=== PATIENT | male | born 1990 | race Caucasian/White ===

== ENCOUNTER 2018-11-17 14:08 | Inpatient (IN) | payer MEDICAID, SELFPAY ==
[2018-11-17 14:23] VITALS: BMI 26.4
[2018-11-17 14:32] VITALS: BP 135/89; PULSE 101; RESP 18; TEMP 36.9; O2SAT 100
[2018-11-17 14:34] VITALS: BP 135/89; PULSE 101; RESP 18; TEMP 36.9
[2018-11-17] MEDS: Buprenorphine HCl 2 MG TAB.SUBL SL ×2 (15:07→23:12)
[2018-11-17] MEDS: Methocarbamol 750 MG Tablet PO ×2 (15:07→21:39)
[2018-11-17] MEDS: chlordiazePOXIDE 25 MG Capsule PO ×2 (15:07→21:39)
[2018-11-17] MEDS: cloNIDine HCl 0.1 MG Tablet PO ×2 (15:07→17:59)
[2018-11-17] MEDS: Dicyclomine 10 MG Capsule 20 MG PO ×2 (15:07→21:38)
--- NOTE | 2018-11-17 15:19 | NEWVISION ---
Patient will continue with inpatient rehabilitation at [facility] in [place], [place] immediately post discharge. Patient will need transportation through his insurance company.
[2018-11-17] MEDS: 0.9% NaCl Peripheral Flush Adult/Peds IV ×2 (17:00→17:59)
[2018-11-17] MEDS: Pramipexole Di-HCl 0.25 MG Tablet PO (17:00)
[2018-11-17] MEDS: hydrOXYzine PAM 25 MG Capsule 50 MG PO ×2 (17:00→23:12)
--- NOTE | 2018-11-17 17:15 | PCM.HP.STD ---
Problem List (1) Heroin abuse Status: Acute (2) Alcohol abuse Status: Acute (3) Benzodiazepine abuse Status: Acute (4) Hypertension Status: Chronic History of Present Illness Date of Admission: 11/17/18 Chief Complaint: Heroin, alcohol, benzo withdrawal The patient is a 28 year old M with a history of hypertension presents to the hospital wanting to undergo withdrawal with [facility]. He states that he has been using for the last several years heroin about half to 1 g, as well as alcohol of 6-10 drinks a day generally either beer or vodka or some combination of those 2, as well as snorting Xanax and occasional Valium use. He says that his last use of everything was yesterday. He has tried to go through rehab before and has relapsed several times but he is hoping this is his last time through rehab. Of note he also had cellulitis of his left lower extremity a little over a week ago when he is completed antibiotics and is doing well from that standpoint. Past Medical History Past Medical History (Chronic Problems): Chronic Problems Hypertension (Chronic) Allergies vancomycin Allergy (Verified 11/17/18 14:27) Other red ezekiel syndrome Home Medications: Ambulatory Orders Medication Instructions Recorded Metoprolol Succinate [Toprol Xl] 50 mg PO DAILY 11/17/18 Surgical History: - - Shoulder arthroscopy, ankle surgery Smoking Status: Current every day smoker Tobacco Use: Cigarettes Alcohol: Heavy Drugs: Heroin, Marijuana, - - Benzos - *Family History Maternal History Items: Heart Disease Paternal History Items: Heart Disease Review of Systems Constitutional: Denies: Chills, Fever, Weight Change HEENT: Denies: Head Aches, Sinus Congestion, Sinus Drainage Cardiovascular: Denies: Chest Pain, Palpitations Respiratory: Denies: Cough, Shortness of breath at rest, Sputum production Gastrointestinal: Denies: Abdominal Pain, Nausea, Vomiting Genitourinary: Denies: Dysuria Musculoskeletal: Denies: Joint Pain, Joint Tenderness Skin: Denies: Rash, Wounds Neurological: Denies: Numbness, Tingling, Focal weakness Psychiatric: Reports: Anxiety. Denies: Depression, Homicidal Ideations, Suicidal Ideations Hematologic/ Lymphatic: Denies: Easy Bruising, Easy Bleeding VTE Information - Inpt Only VTE Present on Admission: No Patient Problems: Active and Suspected Problems Heroin abuse (Acute) Alcohol abuse (Acute) Benzodiazepine abuse (Acute) - Physical Exam General: Alert, Oriented x3, Cooperative, No apparent distress HEENT: Atraumatic, PERRLA, EOMI, Normocephalic Oral: Dry Mucosa Neck: Supple, No JVD, Trachea Midline Lungs: Clear to auscultation, Normal air movement, No rhonchi, No wheeze, No rales Cardiovascular: Regular Rhythm, Normal S1, Normal S2, No murmurs, Tachycardic Abdomen: Soft, Non Tender, Non-Distended, No Hepato-splenomegaly Extremities: No edema, Capillary Refill Less than 3 Seconds Skin: No rashes, No breakdown Neurological: Neuro grossly intact, Sensory exam intact to light touch and pain Psych/Mental Status: Anxious Vital Signs Temp Pulse Resp BP Pulse Ox 98.4 F 101 H 18 135/89 H 100 11/17/18 14:34 11/17/18 14:34 11/17/18 14:34 11/17/18 14:34 11/17/18 14:32 Oxygen Delivery Method Room Air Weight: 184 lb 3.2 oz Body Mass Index (BMI) 26.4 Assessment/Plan All Active Problems Heroin abuse (Acute) Alcohol abuse (Acute) Benzodiazepine abuse (Acute) 1. Acute alcohol, heroin, and benzo withdrawal -We will initiate him on the [facility] protocol for alcohol and heroin withdrawal -He has a 21-day rehab inpatient stay set up for whenever he is discharged from here 2. HTN -Current systolic blood pressure is 135 -Continue with metoprolol 3. Tobacco abuse -Recommend cessation -We will provide nicotine patch DVT: Ambulation Code Visit Inpatient E&M: 04216 Init Hosp L2
[2018-11-17] MEDS: LORazepam 2 MG/ML Syringe 1 MG IV (17:59)
[2018-11-17 18:06] VITALS: BP 135/79; PULSE 87; RESP 18; TEMP 36.6; O2SAT 98
[2018-11-17 21:28] VITALS: BP 134/78; PULSE 86; RESP 16; TEMP 36.5; O2SAT 96
[2018-11-17 21:33] VITALS: BP 134/78; PULSE 86; RESP 16; TEMP 36.5
[2018-11-18] VITALS (10 sets, daily range): BP systolic 100–121; BP diastolic 59–69; PULSE 72–89; RESP 16–20; TEMP 36.3–37; O2SAT 94–99
[2018-11-18] MEDS: cloNIDine HCl 0.1 MG Tablet PO ×2 (01:53→14:06)
[2018-11-18] MEDS: chlordiazePOXIDE 25 MG Capsule PO ×3 (03:28→17:15)
[2018-11-18] MEDS: Dicyclomine 10 MG Capsule 20 MG PO ×2 (05:45→22:10)
[2018-11-18] MEDS: hydrOXYzine PAM 25 MG Capsule 50 MG PO (05:45)
[2018-11-18] MEDS: Methocarbamol 750 MG Tablet PO (05:45)
[2018-11-18] MEDS: Buprenorphine HCl 2 MG TAB.SUBL SL ×3 (06:26→22:10)
[2018-11-18] MEDS: Multivitamins,Therapeutic Tablet 1 TABLET PO (09:15)
[2018-11-18] MEDS: Metoprolol(XL)Succ 50 MG Tablet PO (09:15)
[2018-11-18] MEDS: Thiamine Hydrochloride 100 MG Tablet PO (09:15)
[2018-11-18] MEDS: Folic Acid 1 MG Tablet PO (09:15)
[2018-11-18] MEDS: LORazepam 1 MG Tablet PO ×2 (11:43→22:10)
[2018-11-18] MEDS: Pramipexole Di-HCl 0.25 MG Tablet PO (11:43)
[2018-11-18] MEDS: Ibuprofen 600 MG Tablet PO (14:05)
--- NOTE | 2018-11-18 16:57 | PCM.PROGNOTE ---
Patient Problems: Active and Suspected Problems Heroin abuse (Acute) Alcohol abuse (Acute) Benzodiazepine abuse (Acute) Subjective: Patient was seen and examined today, he complains of feeling sleepy, he states however that when he gets up and moves around he feels anxious. - Physical Exam General: Alert, Oriented x3, Cooperative, No apparent distress, Well developed HEENT: Atraumatic, PERRLA, EOMI, Normocephalic Oral: Moist Mucosa Neck: Supple, No JVD, Negative Carotid Bruits, No Nuchal Rigidity, Trachea Midline, Thyroid Normal Size and Texture Lungs: Clear to auscultation, Normal air movement Cardiovascular: Regular rate, No murmurs Abdomen: Bowel Sounds Present, Soft, Non Tender, Non-Distended, No hernias noted Extremities: No edema, Capillary Refill Less than 3 Seconds Skin: No rashes, No breakdown Musculoskeletal: No Tenderness to Palpation of Joints or Extremities Neurological: Cranial nerves II-XII grossly intact, Neuro grossly intact, Sensory exam intact to light touch and pain, Coordination normal Psych/Mental Status: Normal Affect, Appropriate, Alert and oriented to time, place, person, mood and affect Vital Signs Temp Pulse Resp BP Pulse Ox 98.0 F 81 16 114/61 94 11/18/18 14:00 11/18/18 14:00 11/18/18 14:00 11/18/18 14:00 11/18/18 09:27 Oxygen Delivery Method Room Air Weight: 83.552 kg Body Mass Index (BMI) 26.4 Intake and Output for Last 24 Hours 11/16/18 11/17/18 11/18/18 23:59 23:59 23:59 Intake Total 600 / 600 1959 Balance 600 / 600 1959 Medical Necessity - Tobacco Use Smoking Status: Current every day smoker Tobacco Use: Cigarettes Assessment/Plan All Active Problems Heroin abuse (Acute) Alcohol abuse (Acute) Benzodiazepine abuse (Acute) #1 acute heroin withdrawal-continue present care #2 acute alcohol withdrawal-continue present care, patient was changed over to oral Ativan as needed instead of IV Ativan. #3 benzodiazepine addiction #4 alcoholism #5 heroin addiction #6 hypertension Code Visit Inpatient E&M: 01207 Subs Hosp L2
[2018-11-19] MEDS: Pramipexole Di-HCl 0.25 MG Tablet PO ×2 (01:29→20:28)
[2018-11-19] MEDS: chlordiazePOXIDE 25 MG Capsule PO ×3 (01:29→16:41)
[2018-11-19 02:00] VITALS: BP 128/49; PULSE 57; RESP 18; TEMP 36.7; TEMP 36.9; O2SAT 96
[2018-11-19] MEDS: Buprenorphine HCl 2 MG TAB.SUBL SL ×2 (06:30→18:45)
[2018-11-19 08:12] VITALS: BP 128/69; PULSE 90; RESP 16; RESP 18; TEMP 36.6; O2SAT 96
[2018-11-19] MEDS: Ibuprofen 600 MG Tablet PO (08:27)
[2018-11-19] MEDS: Dicyclomine 10 MG Capsule 20 MG PO ×2 (08:28→16:41)
[2018-11-19] MEDS: cloNIDine HCl 0.1 MG Tablet PO ×4 (08:28→20:28)
[2018-11-19] MEDS: Folic Acid 1 MG Tablet PO (08:30)
[2018-11-19] MEDS: Thiamine Hydrochloride 100 MG Tablet PO (08:30)
[2018-11-19] MEDS: Multivitamins,Therapeutic Tablet 1 TABLET PO (08:30)
[2018-11-19 08:31] VITALS: PULSE 90
[2018-11-19] MEDS: Metoprolol(XL)Succ 50 MG Tablet PO (08:31)
[2018-11-19 12:24] VITALS: BP 111/69; PULSE 88; RESP 16; TEMP 36.7
--- NOTE | 2018-11-19 15:43 | PCM.PROGNOTE ---
Patient Problems: Active and Suspected Problems Heroin abuse (Acute) Alcohol abuse (Acute) Benzodiazepine abuse (Acute) Subjective: Patient seen and examined today, he was sleeping and I had to wake him up, he states he feels tired. He states he is set up to be admitted into an outpatient program when he is discharged from the hospital, patient states he feels he needs to stay past tomorrow-I told him this would be up to the attending physician tomorrow whether he stays or is discharged. His third midnight after admission is tonight. - Physical Exam General: Oriented x3, Cooperative, No apparent distress, Lethargic HEENT: Atraumatic, PERRLA, EOMI, Normocephalic Oral: Moist Mucosa Neck: Supple, Trachea Midline, Thyroid Normal Size and Texture Lungs: Clear to auscultation, Normal air movement, No rhonchi, No wheeze, No rales Cardiovascular: Regular rate, Regular Rhythm, Normal S1, Normal S2, No murmurs, No Ectopic Activity, PMI Normal, No rub noted, No Gallop Abdomen: Bowel Sounds Present, Soft, Non Tender, Non-Distended, No hernias noted Extremities: No clubbing, No cyanosis, No edema, Capillary Refill Less than 3 Seconds Skin: No rashes, No breakdown Musculoskeletal: No Tenderness to Palpation of Joints or Extremities Neurological: Cranial nerves II-XII grossly intact, Neuro grossly intact, Sensory exam intact to light touch and pain, Coordination normal Psych/Mental Status: Appropriate, Flat Affect Vital Signs Temp Pulse Resp BP Pulse Ox 98.0 F 88 16 111/69 96 11/19/18 12:24 11/19/18 12:24 11/19/18 12:24 11/19/18 12:24 11/19/18 08:12 Oxygen Delivery Method Room Air Weight: 83.552 kg Body Mass Index (BMI) 26.4 Intake and Output for Last 24 Hours 11/17/18 11/18/18 11/19/18 23:59 23:59 23:59 Intake Total 600 / 600 2200 / 2200 1300 / 1300 Balance 600 / 600 2200 / 2200 1300 / 1300 Medical Necessity - Tobacco Use Smoking Status: Current every day smoker Tobacco Use: Cigarettes Assessment/Plan All Active Problems Heroin abuse (Acute) Alcohol abuse (Acute) Benzodiazepine abuse (Acute) #1 acute heroin withdrawal-continue present care #2 acute alcohol withdrawal-continue present care, patient's Ativan dosage was decreased today #3 benzodiazepine addiction #4 alcoholism #5 heroin addiction #6 hypertension Code Visit Inpatient E&M: 52082 Subs Hosp L2
[2018-11-19 16:31] VITALS: BP 120/82; PULSE 86; RESP 16; TEMP 36.3; O2SAT 99
[2018-11-19] MEDS: LORazepam 1 MG Tablet PO (18:48)
[2018-11-19 20:34] VITALS: BP 115/77; PULSE 97; RESP 18; TEMP 37; O2SAT 99
[2018-11-20] MEDS: chlordiazePOXIDE 25 MG Capsule PO (05:18)
[2018-11-20 05:52] VITALS: BP 115/73; PULSE 84; RESP 18; TEMP 36.8; O2SAT 95
[2018-11-20] MEDS: Buprenorphine HCl 2 MG TAB.SUBL SL (07:15)
[2018-11-20] MEDS: cloNIDine HCl 0.1 MG Tablet PO (10:13)
[2018-11-20] MEDS: Folic Acid 1 MG Tablet PO (10:13)
[2018-11-20] MEDS: Thiamine Hydrochloride 100 MG Tablet PO (10:13)
[2018-11-20 10:14] VITALS: PULSE 89
[2018-11-20] MEDS: Multivitamins,Therapeutic Tablet 1 TABLET PO (10:14)
[2018-11-20] MEDS: Metoprolol(XL)Succ 50 MG Tablet PO (10:14)
[2018-11-20 10:16] VITALS: BP 139/72; PULSE 89; RESP 16; TEMP 37.1; O2SAT 96
[2018-11-20] MEDS: LORazepam 1 MG Tablet PO (10:21)
--- NOTE | 2018-11-20 10:47 | DCINST_ITS ---
- Discharge Diagnoses Current Active Problems: Current Active and Chronic Problems Heroin abuse (Acute) Alcohol abuse (Acute) Benzodiazepine abuse (Acute) Hypertension (Chronic) You will use the following diet at home:: Cardiac Your food should be the consistency of: Regular Your liquids should be the consistency of: Regular/Thin Discharge Activity: Return to Normal Activity Weight Bearing Status: Weight bearing as tolerated Call your doctor if you observe: Fever of 101 or Higher, Shortness of breath, Dizziness Allergies/Adverse Reactions: Allergies vancomycin Allergy (Verified 11/17/18 14:27) Other red ezekiel syndrome Medications to take at Discharge Metoprolol Succinate [Toprol Xl] 50 mg PO DAILY 11/17/18 Primary Care Physician: Care Physician,No Primary [Primary Care Provider] - Please follow up with your Primary Care Physician in: follow up with PCP in one week Test Results: Test results from this visit will be discussed in further detail at your follow- up appointment, if applicable. Proposed Discharge Date: 11/20/18
--- NOTE | 2018-11-20 10:47 | PCM.DC.SUM ---
Discharge Date and Diagnosis - Problem List Patient Problems: Active and Suspected Problems Heroin abuse (Acute) Alcohol abuse (Acute) Benzodiazepine abuse (Acute) Date of Admission: 11/17/18 Date of Discharge: 11/20/18 - Primary Discharge Diagnosis Active and Suspected Problems Heroin abuse (Acute) Alcohol abuse (Acute) Benzodiazepine abuse (Acute) - Secondary Discharge Diagnosis Chronic Problems Hypertension (Chronic) Hospital Course and Treatment Operations: None Procedures: None Summary of Care Provided: The patient is a 28 year old M with past medical history of hypertension as well as alcohol, heroin and benzodiazepine abuse. He was admitted for opiate withdrawal as well as alcohol withdrawal and benzodiazepine withdrawal. He was managed for these with the [facility] protocol. Patient states he had gone through rehab several times and Advil tabs and was open to be his last time going through rehab. Patient completed 3 days of detox with Librium. Patient wanted to stay 1 more day because he stated that he felt very anxious about how he will cope in the inpatient rehab center without Librium. I agreed to the patient to stay 1 more day. However patient was informed by [employer] that his bed that had been obtained for him at the inpatient rehab center would be given up if he did not report of the facility today. Patient therefore agreed to be discharged after having completed his 3-day course of Librium. He was discharged to the inpatient facility and is to follow-up with his primary care doctor. Patient seen and examined prior to discharge. Complained of feeling very anxious and was worried about his panic attacks that he would get when he went to the inpatient rehab facility. He denied any chest pain or blurred vision, dizziness, abdominal pain, diarrhea vomiting. Review of his otherwise negative. Labs and vitals reviewed. Home medications reviewed and reconciled. O/E: Vital Signs Height 5 ft 10 in Weight: 184 lb 3.2 oz Weight in Pounds 184.2 lbs Pulse Ox 96 Temperature 98.7 F Pulse Rate 89 Respiratory Rate 16 Blood Pressure 139/72 Blood Pressure Position Semi-Fowlers [] Physical Exam General: Alert, Oriented x3, Cooperative, No apparent distress HEENT: Atraumatic, PERRLA, EOMI, Normocephalic Oral: Dry Mucosa Neck: Supple, No JVD, Trachea Midline Lungs: Clear to auscultation, Normal air movement, No rhonchi, No wheeze, No rales Cardiovascular: Regular Rhythm, Normal S1, Normal S2, No murmurs, Tachycardic Abdomen: Soft, Non Tender, Non-Distended, No Hepato-splenomegaly Extremities: No edema, Capillary Refill Less than 3 Seconds Skin: No rashes, No breakdown Neurological: Neuro grossly intact, Sensory exam intact to light touch and pain Psych/Mental Status: very anxious Plan is to discharge to the inpatient rehab facility today. He is to follow-up with his primary care doctor. Patient Problems: Active and Suspected Problems Heroin abuse (Acute) Alcohol abuse (Acute) Benzodiazepine abuse (Acute) - Physical Exam Vital Signs Temp Pulse Resp BP Pulse Ox 98.7 F 89 16 139/72 H 96 11/20/18 10:16 11/20/18 10:16 11/20/18 10:16 11/20/18 10:16 11/20/18 10:16 Oxygen Delivery Method Room Air Weight: 184 lb 3.2 oz Body Mass Index (BMI) 26.4 Intake and Output for Last 24 Hours 11/18/18 11/19/18 11/20/18 23:59 23:59 23:59 Intake Total 2200 / 2200 1300 / 1300 1400 / 1400 Balance 2200 / 2200 1300 / 1300 1400 / 1400 Discharge Activity: Return to Normal Activity Weight Bearing Status: Weight bearing as tolerated Call your doctor if you observe: Fever of 101 or Higher, Shortness of breath, Dizziness Home Medications: Medications to take at Discharge Metoprolol Succinate [Toprol Xl] 50 mg PO DAILY 11/17/18 Primary Care Physician: Care Physician,No Primary [Primary Care Provider] - Please follow up with your Primary Care Physician in: follow up with PCP in one week Disposition: Inpt Rehab Unit/Facility Minutes spent on discharge:: 40 Patient Condition:: Stable Medical Necessity - Tobacco Use Smoking Status: Current every day smoker Tobacco Use: Cigarettes Meaningful Use Info Meaningful Use Diagnoses (Choose all that apply): None applicable Code Visit Inpatient E&M: 89440 Disch Hosp
== END 2018-11-20 12:28 | disposition home or self-care (01) | DRG 773 ==
LOC: MS2 11-18 07:06 → MS3 11-18 14:06
PROVIDERS: Admitting Provider Family Medicine; Referring Provider Family Medicine; Visit Provider Student in an Organized Health Care Education/Training Program
DX: F11.23 Opioid dependence with withdrawal (principal); F10.239 Alcohol dependence with withdrawal, unspecified; F13.239 Sedative, hypnotic or anxiolytic dependence with withdrawal, unspecified; F17.210 Nicotine dependence, cigarettes, uncomplicated; I10 Essential (primary) hypertension
CPT/HCPCS: A4216